=== PATIENT | female | born 1985 ===

== ENCOUNTER 2022-03-18 14:17 | Outpatient (CLI) | payer OTHER | END 2022-03-18 16:25 | disposition home or self-care (01) | LOC: PRENATAL 14:17 | PROVIDERS: ATTEND Obstetrics & Gynecology Maternal & Fetal Medicine | DX: O35.9XX0 Maternal care for (suspected) fetal abnormality and damage, unspecified, not applicable or unspecified (principal); O14.90 Unspecified pre-eclampsia, unspecified trimester; O35.3XX0 Maternal care for (suspected) damage to fetus from viral disease in mother, not applicable or unspecified; O99.280 Endocrine, nutritional and metabolic diseases complicating pregnancy, unspecified trimester; O34.219 Maternal care for unspecified type scar from previous cesarean delivery; O99.210 Obesity complicating pregnancy, unspecified trimester; O34.10 Maternal care for benign tumor of corpus uteri, unspecified trimester; Z3A.22 22 weeks gestation of pregnancy ==

== ENCOUNTER 2022-05-27 14:27 | Outpatient (CLI) | payer OTHER | END 2022-05-27 16:45 | disposition home or self-care (01) | LOC: PRENATAL 14:27 | PROVIDERS: ATTEND Obstetrics & Gynecology Maternal & Fetal Medicine | DX: O36.8199 Decreased fetal movements, unspecified trimester, other fetus (principal); O26.849 Uterine size-date discrepancy, unspecified trimester; O99.280 Endocrine, nutritional and metabolic diseases complicating pregnancy, unspecified trimester; Z3A.32 32 weeks gestation of pregnancy ==